=== PATIENT | female | born 1950 | race African-American/Black ===

== ENCOUNTER 2018-03-13 08:44 | Inpatient (IN) | payer MEDICARE, MEDICAID ==
[~2018-03-13] VITALS: Ht 157.5 cm; Wt 108.9 kg
[~2018-03-13 08:44] MED LIST: ATOR-2; BENA5TAB3; CARV3.1242; CITA10SO; CLOP75TA33; LEVO25TA2; N325; OMEP10CA4
[2018-03-13] MEDS ORDERED: ONDANSETRON HCL 4MG/2ML VIAL IV STA (09:06)
[2018-03-13] MEDS ORDERED: KETOROLAC 30MG/ML VIAL IV STA (09:06)
[2018-03-13] MEDS ORDERED: SODIUM CHLORIDE 0.9% 1,000 ML IV ONE (09:06)
[2018-03-13] MEDS ORDERED: MORPHINE SULFATE 4 MG/ML CPJ (NOT FOR IM USE) IV STA (09:06)
[2018-03-13 09:51] LABS: EOSINOPHILS % 2.5 % (0.0-5.0); HEMATOCRIT. 35.2 % (36.0-48.0); HEMOGLOBIN. 11.6 g/dL (12.0-16.0); LYMPHOCYTES % 11.4 % (20.0-50.0); MEAN CORPUSCULAR VOLUME 87.9 fL (81.0-99.0); MEAN PLATELET VOLUME 7.5 fl (7.4-10.4); MONOCYTES % 8.7 % (2.0-8.0); NEUTROPHILS % 76.4 % (40.0-76.0); PLATELET 270 x1000/uL (130-400); RED CELL DISTRIBUTION WIDTH 19.8 % (11.6-14.6)
[2018-03-13] MEDS ORDERED: KETAMINE HCL 50 MG/ML 10ML IV ONE (10:00)
[2018-03-13] MEDS ORDERED: MIDAZOLAM HCL 2 MG/2 ML VIAL IV ONE (10:00)
[2018-03-13] MEDS ORDERED: FENTANYL CITRATE/PF 50MCG/ML 2ML VIAL IV ONE (10:00)
[2018-03-13] MEDS ORDERED: PROPOFOL 200MG/20ML VIAL IV ONE (10:00)
[2018-03-13 10:07] LABS: INR 1.1; PARTIAL THROMBOPLASTIN TIME 29.2 sec (23.4-31.0); PROTHROMBIN TIME 11.5 sec (9.4-11.6)
[2018-03-13 10:31] LABS: CHLORIDE 105 mEq/L (98-107)
[2018-03-13] MEDS ORDERED: MORPHINE SULFATE 2 MG/ML CPJ (NOT FOR IM USE) IV PRN (14:00)
[2018-03-13] MEDS ORDERED: ONDANSETRON HCL 4MG/2ML VIAL IV PRN (14:00)
[2018-03-13 16:00] VITALS: BP 113/59
[2018-03-13] MEDS: MORPHINE SULFATE 4 MG/ML CPJ (NOT FOR IM USE) IV PRN ×2 (16:49→23:56)
[2018-03-13 20:00] VITALS: BP 104/55
[2018-03-13] MEDS: ATORVASTATIN CALCIUM 40MG TABLET PO SCH (20:05)
[2018-03-13] MEDS: HYDROCODONE/ACETAMINOPHEN 5/325MG TABLET PO PRN (20:08)
[2018-03-13] MEDS: CARVEDILOL 3.125 MG TABLET PO SCH (20:09)
[2018-03-13] MEDS ORDERED: TRAM50TA3 PO (20:38)
[2018-03-13] MEDS ORDERED: CARV25TA47 PO (20:38)
[2018-03-13] MEDS ORDERED: LISI-604 PO (20:38)
[2018-03-13] MEDS ORDERED: COR12 PO (20:38)
[2018-03-13] MEDS ORDERED: FURO40TA5 PO (20:38)
[2018-03-13] MEDS ORDERED: FOLI-43 PO (20:38)
[2018-03-13] MEDS ORDERED: SPIR25TA4 PO (20:38)
[2018-03-13] MEDS ORDERED: CLOT24CR TP (20:38)
[2018-03-13] MEDS ORDERED: LEVO112T7 PO (20:38)
[2018-03-13] MEDS ORDERED: FLUT9.9S BOTHNSTRLS (20:38)
[2018-03-13] MEDS ORDERED: ATOR40TA70 PO (20:38)
[2018-03-13] MEDS ORDERED: DULO60CA44 PO (20:38)
[2018-03-13] MEDS ORDERED: METH2.5T PO (20:38)
[2018-03-13] MEDS ORDERED: DICY20TA11 PO (20:38)
[2018-03-13] MEDS ORDERED: HYDR200T80 PO (20:38)
[2018-03-13] MEDS ORDERED: ASPI-1159 PO (20:38)
[2018-03-13] MEDS ORDERED: LORA10TA7 PO (20:38)
[2018-03-13] MEDS ORDERED: NITR0.4T49 SL (20:38)
[2018-03-13] MEDS ORDERED: OMEP20TA2 PO (20:38)
[2018-03-13] MEDS ORDERED: MAGN400T27 PO (20:38)
[2018-03-14] VITALS: BP 110/62
[2018-03-14] MEDS: HYDROCODONE/ACETAMINOPHEN 5/325MG TABLET PO PRN ×3 (02:30→23:44)
[2018-03-14 04:00] VITALS: BP 119/52
[2018-03-14] MEDS: MORPHINE SULFATE 4 MG/ML CPJ (NOT FOR IM USE) IV PRN ×3 (04:58→17:09)
[2018-03-14 07:05] LABS: BASOPHILS % 0.5 % (0.0-2.0); EOSINOPHILS % 3.7 % (0.0-5.0); HEMATOCRIT. 34.4 % (36.0-48.0); HEMOGLOBIN. 11.3 g/dL (12.0-16.0); LYMPHOCYTES % 13.2 % (20.0-50.0); MEAN CORPUSCULAR HEMOGLOBIN 29.3 pg (28.0-32.0); MEAN PLATELET VOLUME 7.8 fl (7.4-10.4); MONOCYTES % 12.1 % (2.0-8.0); NEUTROPHILS % 70.5 % (40.0-76.0); PLATELET 292 x1000/uL (130-400); RED BLOOD CELL COUNT 3.86 mill/uL (4.2-5.4); RED CELL DISTRIBUTION WIDTH 20.2 % (11.6-14.6)
[2018-03-14] MEDS: LEVOTHYROXINE SODIUM 25MCG TABLET PO SCH (07:07)
[2018-03-14 08:00] VITALS: BP 115/78
[2018-03-14] MEDS: CARVEDILOL 3.125 MG TABLET PO SCH ×2 (08:08→20:00)
[2018-03-14] MEDS: BENAZEPRIL 5MG TABLET PO SCH (08:11)
[2018-03-14] MEDS ORDERED: VANCOMYCIN HCL 500 MG/VIAL ONE (10:36)
[2018-03-14] MEDS ORDERED: BACITRACIN ZINC 15GM TUBE TOP ONE (10:36)
[2018-03-14 12:00] VITALS: BP 100/50
[2018-03-14 16:00] VITALS: BP 107/44
[2018-03-14 20:00] VITALS: BP 116/68
[2018-03-14] MEDS: ATORVASTATIN CALCIUM 40MG TABLET PO SCH (20:00)
[2018-03-15] VITALS: BP 112/64
[2018-03-15 04:00] VITALS: BP 124/69
[2018-03-15] MEDS: MORPHINE SULFATE 4 MG/ML CPJ (NOT FOR IM USE) IV PRN ×2 (05:50→09:56)
[2018-03-15] MEDS: LEVOTHYROXINE SODIUM 25MCG TABLET PO SCH (06:29)
[2018-03-15 08:00] VITALS: BP 114/57
[2018-03-15 08:06] LABS: BG BASE EXCESS -1.7 mmol/L (-2.0-2.0); BG CARBOXYHEMOGLOBIN 0.3 % (0.5-1.5); BG DEOXYHEMOGLOBIN 6.3 % (0.0-5.0); BG HCO3 ACT 22.9 mmol/L (22.0-26.0); BG METHEMOGLOBIN 0.2 % (0.0-1.5); BG OXYGEN SATURATION 93.7 % (92.0-98.5); BG OXYHEMOGLOBIN 93.2 % (94.0-97.0); BG PCO2 38.4 mmHg (35.0-45.0); BG PH 7.393 (7.350-7.450); BG PO2 72.3 mmHg (75.0-100.0); BG SAMPLE SITE RIGHT RADIAL; BG TOTAL HEMOGLOBIN 11.7 g/dL (12.0-18.0); BG VENT MODE ROOM AIR
[2018-03-15] MEDS: CARVEDILOL 3.125 MG TABLET PO SCH ×2 (09:00→21:20)
[2018-03-15] MEDS: BENAZEPRIL 5MG TABLET PO SCH (09:00)
[2018-03-15] MEDS: BLOOD SUGAR DIAGNOSTIC STRIP TEST SCH ×3 (11:39→21:19)
[2018-03-15] MEDS: HYDROCODONE/ACETAMINOPHEN 5/325MG TABLET PO PRN (11:43)
[2018-03-15] MEDS ORDERED: MORPHINE SULFATE 4 MG/ML CPJ (NOT FOR IM USE) IV PRN (11:45)
[2018-03-15] MEDS: DEXT 5%/0.45% NACL 1000ML 1,000 ML IV SCH ×2 (11:54→21:29)
[2018-03-15 12:00] VITALS: BP 127/70
[2018-03-15 13:23] LABS: INR 1.1; PROTHROMBIN TIME 11.9 sec (9.4-11.6)
[2018-03-15 16:00] VITALS: BP 113/61
[2018-03-15] MEDS: DIPHENHYDRAMINE 50MG/ML VIAL IV PRN (16:57)
[2018-03-15 20:00] VITALS: BP 132/67
[2018-03-15] MEDS: ATORVASTATIN CALCIUM 40MG TABLET PO SCH (21:19)
[2018-03-15] MEDS: HYDROMORPHONE HCL/PF 2MG/ML CPJ IV PRN (21:21)
[2018-03-16] VITALS: BP 141/65
[2018-03-16 04:00] VITALS: BP 128/73
[2018-03-16] MEDS: HYDROMORPHONE HCL/PF 2MG/ML CPJ IV PRN ×2 (04:08→08:10)
[2018-03-16] MEDS: LEVOTHYROXINE SODIUM 25MCG TABLET PO SCH (07:57)
[2018-03-16] MEDS: DEXT 5%/0.45% NACL 1000ML 1,000 ML IV SCH ×2 (07:57→17:30)
[2018-03-16] MEDS: BLOOD SUGAR DIAGNOSTIC STRIP TEST SCH ×2 (07:57→21:00)
[2018-03-16 08:00] VITALS: BP 124/61
[2018-03-16] MEDS: CARVEDILOL 3.125 MG TABLET PO SCH ×2 (08:09→22:45)
[2018-03-16] MEDS: BENAZEPRIL 5MG TABLET PO SCH (08:10)
[2018-03-16] MEDS: DIPHENHYDRAMINE 50MG/ML VIAL IV PRN (10:13)
[2018-03-16 12:00] VITALS: BP 119/60
[2018-03-16] MEDS ORDERED: VANCOMYCIN HCL 500 MG/VIAL ONE ×2 (15:27→20:25)
[2018-03-16] MEDS ORDERED: BACITRACIN ZINC 15GM TUBE TOP ONE (15:27)
[2018-03-16 16:00] VITALS: BP 123/65
[2018-03-16] MEDS ORDERED: FENTANYL CITRATE/PF 50MCG/ML 2ML VIAL ONE (19:48)
[2018-03-16] MEDS ORDERED: PROPOFOL 200MG/20ML VIAL IV ONE (19:49)
[2018-03-16] MEDS ORDERED: MIDAZOLAM HCL 2 MG/2 ML VIAL ONE (19:49)
[2018-03-16] MEDS ORDERED: ONDANSETRON HCL 4MG/2ML VIAL ONE (20:06)
[2018-03-16] MEDS ORDERED: HYDROMORPHONE HCL/PF 2MG/ML (OR) ONE (20:06)
[2018-03-16] MEDS ORDERED: DEXAMETHASONE 4MG/ML 1ML VIAL ONE (20:06)
[2018-03-16] MEDS ORDERED: LABETALOL 5MG/ML SYR 20 MG/4 ML SYRINGE IV PRN (20:30)
[2018-03-16] MEDS ORDERED: MEPERIDINE HCL/PF 25MG/ML CPJ IV PRN (20:30)
[2018-03-16] MEDS ORDERED: ONDANSETRON HCL 4MG/2ML VIAL IV PRN (20:30)
[2018-03-16] MEDS ORDERED: HYDROMORPHONE HCL/PF 2MG/ML CPJ IV PRN (20:30)
[2018-03-16] MEDS: CEFAZOLIN 1000MG PREMIX 50 ML IV SCH (22:45)
[2018-03-16] MEDS: ATORVASTATIN CALCIUM 40MG TABLET PO SCH (22:45)
[2018-03-17] VITALS: BP 130/67
[2018-03-17] MEDS: HYDROMORPHONE HCL/PF 2MG/ML CPJ IV PRN ×2 (01:46→08:56)
[2018-03-17 04:00] VITALS: BP 112/58
[2018-03-17] MEDS: LEVOTHYROXINE SODIUM 25MCG TABLET PO SCH (06:26)
[2018-03-17] MEDS: CEFAZOLIN 1000MG PREMIX 50 ML IV SCH (06:26)
[2018-03-17] MEDS: BLOOD SUGAR DIAGNOSTIC STRIP TEST SCH ×3 (06:54→17:20)
[2018-03-17 08:00] VITALS: BP 124/67
[2018-03-17 08:03] LABS: HEMATOCRIT. 31.4 % (36.0-48.0); HEMOGLOBIN. 10.3 g/dL (12.0-16.0); MEAN CORPUSCULAR HEMOGLOBIN 28.6 pg (28.0-32.0); MEAN CORPUSCULAR VOLUME 87.4 fL (81.0-99.0); MEAN PLATELET VOLUME 7.9 fl (7.4-10.4); PLATELET 256 x1000/uL (130-400); RED BLOOD CELL COUNT 3.59 mill/uL (4.2-5.4); RED CELL DISTRIBUTION WIDTH 19.3 % (11.6-14.6)
[2018-03-17 08:17] LABS: CHLORIDE 103 mEq/L (98-107)
[2018-03-17 08:26] LABS: LDL CHOLESTEROL 38 mg/dL (5-100)
[2018-03-17 08:29] LABS: HDL CHOLESTEROL 42 mg/dL (40-59)
[2018-03-17] MEDS: BENAZEPRIL 5MG TABLET PO SCH (08:56)
[2018-03-17] MEDS: CARVEDILOL 3.125 MG TABLET PO SCH (08:56)
[2018-03-17 12:00] VITALS: BP 105/57
[2018-03-17 12:09] LABS: BG BASE EXCESS -0.1 mmol/L (-2.0-2.0); BG CARBOXYHEMOGLOBIN 0.8 % (0.5-1.5); BG DEOXYHEMOGLOBIN 2.8 % (0.0-5.0); BG FRACTION INSPIRED OXYGEN 28; BG METHEMOGLOBIN 0.3 % (0.0-1.5); BG OXYGEN SATURATION 97.2 % (92.0-98.5); BG OXYHEMOGLOBIN 96.1 % (94.0-97.0); BG PCO2 37.7 mmHg (35.0-45.0); BG PH 7.422 (7.350-7.450); BG PO2 95.1 mmHg (75.0-100.0); BG SAMPLE SITE RIGHT RADIAL; BG TOTAL HEMOGLOBIN 14.2 g/dL (12.0-18.0); BG VENT MODE NASAL CANNULA
[2018-03-17] MEDS: HYDROCODONE/ACETAMINOPHEN 5/325MG TABLET PO PRN (14:43)
[2018-03-17 16:00] VITALS: BP 110/80
[2018-03-17 17:28] LABS: PLATELET ESTIMATE NORMAL
[2018-03-17 18:10] VITALS: BP 110/80
== END 2018-03-17 20:40 | DRG 493 ==
LOC: ER 08:44 → 6EST 13:02 → EDBEDREQ 13:05 → ENRESERV 14:45 → 6EST 03-14 16:22
PROVIDERS: ADMIT Internal Medicine; ATTEND Internal Medicine
PROC: 0QSK04Z Reposition Left Fibula with Internal Fixation Device, Open Approach (ICD-10-PCS; 2018-03-16)
PROC: 0QSH04Z Reposition Left Tibia with Internal Fixation Device, Open Approach (ICD-10-PCS; principal; 2018-03-16 16:30)
DX: S82.842A Displaced bimalleolar fracture of left lower leg, initial encounter for closed fracture (principal); E44.0 Moderate protein-calorie malnutrition; M32.9 Systemic lupus erythematosus, unspecified; I11.0 Hypertensive heart disease with heart failure; I50.32 Chronic diastolic (congestive) heart failure; Z68.41 Body mass index [BMI] 40.0-44.9, adult; S82.832A Other fracture of upper and lower end of left fibula, initial encounter for closed fracture; S82.52XA Displaced fracture of medial malleolus of left tibia, initial encounter for closed fracture; W01.0XXA Fall on same level from slipping, tripping and stumbling without subsequent striking against object, initial encounter; E03.9 Hypothyroidism, unspecified; E78.5 Hyperlipidemia, unspecified; I25.10 Atherosclerotic heart disease of native coronary artery without angina pectoris; M19.90 Unspecified osteoarthritis, unspecified site; F41.9 Anxiety disorder, unspecified; K21.9 Gastro-esophageal reflux disease without esophagitis; M79.7 Fibromyalgia; E66.9 Obesity, unspecified; Z86.73 Personal history of transient ischemic attack (TIA), and cerebral infarction without residual deficits; I25.2 Old myocardial infarction; Z88.5 Allergy status to narcotic agent; Z79.82 Long term (current) use of aspirin; Z79.899 Other long term (current) drug therapy; Z90.49 Acquired absence of other specified parts of digestive tract; Z90.79 Acquired absence of other genital organ(s); Y93.89 Activity, other specified; Y92.89 Other specified places as the place of occurrence of the external cause; Y99.8 Other external cause status
CPT/HCPCS: 27788; 36415; 36600; 71045; 73600; 73610; 76000; 80048; 80053; 80061; 82375; 82805; 82962; 83690; 84484; 85025; 85384; 85610; 85730; 92523; 93005; 93306; 96361; 96374; 96375; 97162; 97164; 97530; 99285; J0690; J1100; J1170; J1200; J1885; J2250; J2270; J2405; J2704; J3010; J3370; J3490; J7030; A4315

== ENCOUNTER 2019-12-13 18:05 | Emergency (ER) | payer MEDICARE, MEDICAID ==
[~2019-12-13] VITALS: Ht 165.1 cm; Wt 105.0 kg
[~2019-12-13 18:05] MED LIST changes: +ASPI-1497 PO; -BENA5TAB3; +BENA5TAB6; -CITA10SO; +CLOT24CR TP; +DICY20TA11 PO; +DULO60CA44 PO; +FLUT9.9S BOTHNSTRLS; +FOLI-43 PO; +FURO40TA5 PO; +HYDR200T80 PO; +LEVO112T7 PO; -LEVO25TA2; +LORA10TA7 PO; +MAGN400T8 PO; +METH2.5T PO; -N325; +NITR0.4T49 SL; -OMEP10CA4; +OMEP20TA2 PO; +SPIR25TA6 PO; +TRAM50TA3 PO
[2019-12-14] MEDS ORDERED: KETOROLAC 15MG/ML VIAL IM ONE (00:15)
[2019-12-14 01:19] VITALS: BP 134/71
== END 2019-12-14 01:21 | disposition home or self-care (01) ==
LOC: ER 18:05
DX: M62.838 Other muscle spasm (principal); F41.9 Anxiety disorder, unspecified; K21.9 Gastro-esophageal reflux disease without esophagitis; I11.9 Hypertensive heart disease without heart failure; E03.9 Hypothyroidism, unspecified; M19.90 Unspecified osteoarthritis, unspecified site; Z88.6 Allergy status to analgesic agent; Z79.82 Long term (current) use of aspirin
CPT/HCPCS: 96372; 99283; J1885

== ENCOUNTER 2019-12-15 09:35 | Emergency (ER) | payer MEDICARE, MEDICAID ==
[~2019-12-15] VITALS: Ht 165.1 cm; Wt 69.0 kg
[2019-12-15 09:43] VITALS: BP 170/65
[2019-12-15] MEDS ORDERED: ONDANSETRON 4MG ODT PO ONE (12:00)
[2019-12-15] MEDS ORDERED: FAMOTIDINE 20MG TABLET PO ONE (12:00)
[2019-12-15] MEDS ORDERED: MAGNESIUM/ALUMINUM HYDROXIDE/SIMETHICONE 30ML UDC PO ONE (12:00)
[2019-12-15] MEDS ORDERED: ACETAMINOPHEN 325MG TABLET PO ONE (12:00)
== END 2019-12-15 12:42 | disposition left against medical advice (07) ==
LOC: ER 09:50
DX: R11.2 Nausea with vomiting, unspecified (principal); F41.9 Anxiety disorder, unspecified; K21.9 Gastro-esophageal reflux disease without esophagitis; I10 Essential (primary) hypertension; E03.9 Hypothyroidism, unspecified; M79.7 Fibromyalgia; Z79.82 Long term (current) use of aspirin; Z79.899 Other long term (current) drug therapy; Z88.5 Allergy status to narcotic agent
CPT/HCPCS: 99283

== ENCOUNTER 2021-12-22 19:04 | Inpatient (IN) | payer MEDICARE, MEDICAID ==
[~2021-12-22] VITALS: Ht 162.6 cm; Wt 93.9 kg
[~2021-12-22 19:04] MED LIST changes: -ATOR-2; +ATOR-2 PO; -CARV3.1242; +CARV3.1242 PO; -CLOP75TA33; +CLOP75TA33 PO
[2021-12-22] MEDS ORDERED: ASPIRIN 325MG TABLET PO ONE (20:00)
[2021-12-22] MEDS ORDERED: CLOPIDOGREL 75MG TABLET PO ONE (20:00)
[2021-12-22 20:18] LABS: BASOPHILS % 0.9 % (0.0-2.0); EOSINOPHILS % 3.4 % (0.0-5.0); HEMATOCRIT. 38.4 % (36.0-48.0); HEMOGLOBIN. 12.9 g/dL (12.0-16.0); LYMPHOCYTES % 19.4 % (20.0-50.0); MEAN CORPUSCULAR HEMOGLOBIN 29.9 pg (28.0-32.0); MEAN CORPUSCULAR VOLUME 88.9 fL (81.0-99.0); MEAN PLATELET VOLUME 7.8 fl (7.4-10.4); MONOCYTES % 9.3 % (2.0-8.0); PLATELET 174 x1000/uL (130-400); RED BLOOD CELL COUNT 4.32 mill/uL (4.2-5.4); RED CELL DISTRIBUTION WIDTH 14.5 % (11.6-14.6)
[2021-12-22 20:23] LABS: CHLORIDE 110 mEq/L (98-107)
[2021-12-22 20:27] LABS: ETHANOL BLOOD < 10 mg/dL
[2021-12-22 20:33] LABS: CLARITY URINE CLEAR (CLEAR); COLOR URINE YELLOW (YELLOW); KETONES URINE NEGATIVE (NEGATIVE); LEUKOCYTE ESTERASE URINE TRACE (NEGATIVE); NITRITE URINE NEGATIVE (NEGATIVE); OCCULT BLOOD URINE NEGATIVE (NEGATIVE); PROTEIN URINE NEGATIVE (NEGATIVE); SPECIFIC GRAVITY URINE 1.031 (1.005-1.030); UROBILINOGEN URINE 0.2 E.U./dL (0.2-1.0)
[2021-12-22 20:49] LABS: *AMPHETAMINES SCREEN URINE NEGATIVE (NEGATIVE); *BARBITURATES SCREEN URINE NEGATIVE (NEGATIVE); *BENZODIAZEPINES SCREEN URINE NEGATIVE (NEGATIVE); *COCAINE SCREEN URINE NEGATIVE (NEGATIVE)
[2021-12-22 20:50] LABS: CANNABINOID URINE SCREEN NEGATIVE (NEGATIVE); METHADONE URINE SCREEN NEGATIVE (NEGATIVE); OPIATES URINE SCREEN NEGATIVE (NEGATIVE); PHENCYCLIDINE URINE SCREEN NEGATIVE (NEGATIVE)
[2021-12-22] MEDS ORDERED: IOHEXOL-350 100 ML BOTTLE ONE (20:50)
[2021-12-22] MEDS ORDERED: ATORVASTATIN CALCIUM 40MG TABLET PO SCH (21:00)
[2021-12-23] MEDS ORDERED: DIPHENHYDRAMINE 25MG CAPSULE PO ONE (00:15)
[2021-12-23] MEDS ORDERED: CEFTRIAXONE 1 G PREMIX 50 ML IV ONE (02:15)
[2021-12-23] MEDS ORDERED: CEFTRIAXONE 1,000 MG in DEXTROSE 5% WATER 50 ML IV SCH (03:15)
[2021-12-23] MEDS ORDERED: ONDANSETRON HCL 4MG/2ML INJ IV PRN (09:15)
[2021-12-23] MEDS ORDERED: MAGNESIUM/ALUMINUM HYDROXIDE/SIMETHICONE 30ML UDC PO PRN (09:15)
[2021-12-23] MEDS ORDERED: CLONIDINE 0.1MG TABLET PO PRN (09:15)
[2021-12-23] MEDS ORDERED: ACETAMINOPHEN 325MG TABLET PO PRN (09:15)
[2021-12-23] MEDS ORDERED: DOCUSATE SODIUM 100MG CAPSULE PO PRN (09:15)
[2021-12-23] MEDS ORDERED: ENOXAPARIN 40MG/0.4ML SYR SUBCUT SCH (09:15)
[2021-12-23] MEDS: OMEPRAZOLE 20MG CAPSULE EXTENDED RELEASE PO SCH (10:58)
[2021-12-23] MEDS: ENOXAPARIN 30MG/0.3ML SYR SUBCUT SCH ×2 (10:58→22:58)
[2021-12-23 12:05] VITALS: BP 118/55
[2021-12-23] MEDS ORDERED: QUET100T34 MT (12:45)
[2021-12-23] MEDS ORDERED: LISI10TA26 MT (12:50)
[2021-12-23] MEDS ORDERED: BENZ0.5T43 PO (12:50)
[2021-12-23] MEDS ORDERED: MECL-115 PO (12:50)
[2021-12-23] MEDS ORDERED: DOCU-150 MT (12:50)
[2021-12-23] MEDS ORDERED: BENZ0.5T43 MT (12:50)
[2021-12-23] MEDS ORDERED: LIDO28.35 TP (12:50)
[2021-12-23] MEDS ORDERED: LOPE2CAP PO (12:59)
[2021-12-23] MEDS ORDERED: DICL100G31 TP (12:59)
[2021-12-23] MEDS ORDERED: FAMO40TA7 MT (12:59)
[2021-12-23] MEDS ORDERED: HYDR453.3 TP (12:59)
[2021-12-23 13:13] LABS: BASOPHILS % 0.7 % (0.0-2.0); EOSINOPHILS % 4.3 % (0.0-5.0); HEMATOCRIT. 40.3 % (36.0-48.0); LYMPHOCYTES % 20.2 % (20.0-50.0); MEAN CORPUSCULAR VOLUME 89.1 fL (81.0-99.0); MEAN PLATELET VOLUME 7.9 fl (7.4-10.4); NEUTROPHILS % 65.8 % (40.0-76.0); PLATELET 205 x1000/uL (130-400); RED BLOOD CELL COUNT 4.52 mill/uL (4.2-5.4); RED CELL DISTRIBUTION WIDTH 14.7 % (11.6-14.6)
[2021-12-23 13:35] LABS: CHLORIDE 109 mEq/L (98-107)
[2021-12-23 16:00] VITALS: BP 113/43
[2021-12-23 20:00] VITALS: BP 117/46
[2021-12-24] VITALS: BP 119/53
[2021-12-24 04:00] VITALS: BP 106/45
[2021-12-24 06:31] LABS: CHLORIDE 110 mEq/L (98-107)
[2021-12-24 06:34] LABS: BASOPHILS % 0.7 % (0.0-2.0); EOSINOPHILS % 6.4 % (0.0-5.0); HEMATOCRIT. 37.7 % (36.0-48.0); HEMOGLOBIN. 12.7 g/dL (12.0-16.0); LYMPHOCYTES % 23.9 % (20.0-50.0); MEAN CORPUSCULAR VOLUME 89.2 fL (81.0-99.0); MEAN PLATELET VOLUME 8.3 fl (7.4-10.4); MONOCYTES % 10.5 % (2.0-8.0); NEUTROPHILS % 58.5 % (40.0-76.0); PLATELET 190 x1000/uL (130-400); RED BLOOD CELL COUNT 4.23 mill/uL (4.2-5.4); RED CELL DISTRIBUTION WIDTH 15.1 % (11.6-14.6)
[2021-12-24 06:42] LABS: PHOSPHORUS 2.3 mg/dL (2.5-4.9)
[2021-12-24 06:43] LABS: LDL CHOLESTEROL 42 mg/dL (5-100)
[2021-12-24 06:44] LABS: HDL CHOLESTEROL 53 mg/dL (40-59)
[2021-12-24 06:45] LABS: T4 FREE 1.08 ng/dL (0.76-1.46)
[2021-12-24 07:40] VITALS: BP 105/55
[2021-12-24] MEDS: OMEPRAZOLE 20MG CAPSULE EXTENDED RELEASE PO SCH (09:50)
[2021-12-24] MEDS: ENOXAPARIN 30MG/0.3ML SYR SUBCUT SCH ×2 (09:51→21:17)
[2021-12-24 11:55] VITALS: BP 122/53
[2021-12-24 16:10] VITALS: BP 118/53
[2021-12-24] MEDS ORDERED: SODIUM PHOS,M-BASIC-D-BASIC 15 MM in DEXT 5% WATER 245 ML IV NR (18:00)
[2021-12-24] MEDS: SODIUM CHLORIDE 0.9% 1,000 ML IV SCH (19:18)
[2021-12-24 20:00] VITALS: BP 109/53
[2021-12-25 00:19] VITALS: BP 117/49
[2021-12-25 04:00] VITALS: BP 116/52
[2021-12-25] MEDS: SODIUM CHLORIDE 0.9% 1,000 ML IV SCH ×2 (05:01→18:25)
[2021-12-25 07:22] LABS: BASOPHILS % 0.5 % (0.0-2.0); EOSINOPHILS % 5.2 % (0.0-5.0); HEMATOCRIT. 35.9 % (36.0-48.0); HEMOGLOBIN. 12.3 g/dL (12.0-16.0); LYMPHOCYTES % 25.9 % (20.0-50.0); MEAN CORPUSCULAR HEMOGLOBIN 30.3 pg (28.0-32.0); MEAN CORPUSCULAR VOLUME 88.4 fL (81.0-99.0); MEAN PLATELET VOLUME 8.3 fl (7.4-10.4); NEUTROPHILS % 57.4 % (40.0-76.0); PLATELET 166 x1000/uL (130-400); RED BLOOD CELL COUNT 4.07 mill/uL (4.2-5.4); RED CELL DISTRIBUTION WIDTH 14.5 % (11.6-14.6)
[2021-12-25 08:00] VITALS: BP 138/73
[2021-12-25] MEDS: OMEPRAZOLE 20MG CAPSULE EXTENDED RELEASE PO SCH (10:01)
[2021-12-25] MEDS: ENOXAPARIN 30MG/0.3ML SYR SUBCUT SCH ×2 (10:01→20:51)
[2021-12-25 12:00] VITALS: BP 130/69
[2021-12-25 16:00] VITALS: BP 115/54
[2021-12-25 20:00] VITALS: BP 117/47
[2021-12-25] MEDS: CARVEDILOL 3.125 MG TABLET PO SCH (20:51)
[2021-12-25] MEDS ORDERED: ATORVASTATIN CALCIUM 40MG TABLET PO SCH (21:00)
[2021-12-26] VITALS: BP 121/52
[2021-12-26] MEDS: PIPERACILLIN/TAZOBACTAM 3.375 G in DEXTROSE 5% WATER 50 ML IV SCH ×3 (00:42→14:00)
[2021-12-26 01:10] LABS: BASOPHILS % 0.4 % (0.0-2.0); EOSINOPHILS % 3.7 % (0.0-5.0); HEMATOCRIT. 37.9 % (36.0-48.0); HEMOGLOBIN. 12.5 g/dL (12.0-16.0); LYMPHOCYTES % 24.2 % (20.0-50.0); MEAN CORPUSCULAR HEMOGLOBIN 29.5 pg (28.0-32.0); MEAN CORPUSCULAR VOLUME 89.4 fL (81.0-99.0); MEAN PLATELET VOLUME 8.2 fl (7.4-10.4); MONOCYTES % 8.6 % (2.0-8.0); NEUTROPHILS % 63.1 % (40.0-76.0); PLATELET 164 x1000/uL (130-400); RED BLOOD CELL COUNT 4.24 mill/uL (4.2-5.4); RED CELL DISTRIBUTION WIDTH 14.6 % (11.6-14.6)
[2021-12-26 04:00] VITALS: BP 95/48
[2021-12-26] MEDS: SODIUM CHLORIDE 0.9% 1,000 ML IV SCH (06:37)
[2021-12-26] MEDS ORDERED: LEVOTHYROXINE SODIUM 112MCG TABLET PO SCH (07:20)
[2021-12-26] MEDS ORDERED: FAMOTIDINE 20MG TABLET PO SCH (07:20)
[2021-12-26 08:00] VITALS: BP 116/49
[2021-12-26] MEDS ORDERED: DULOXETINE HCL 60MG DR CAPSULE PO SCH (09:00)
[2021-12-26] MEDS ORDERED: CLOPIDOGREL 75MG TABLET PO SCH (09:00)
[2021-12-26] MEDS: CARVEDILOL 3.125 MG TABLET PO SCH (09:00)
[2021-12-26] MEDS ORDERED: FOLIC ACID 1MG TABLET PO SCH (09:00)
[2021-12-26] MEDS ORDERED: FUROSEMIDE 40MG TABLET PO SCH (09:00)
[2021-12-26] MEDS ORDERED: LORATADINE 10MG TABLET PO SCH (09:00)
[2021-12-26] MEDS ORDERED: ASPIRIN 81MG TABLET PO SCH (09:00)
[2021-12-26] MEDS ORDERED: HYDROXYCHLOROQUINE SULFATE 200MG TABLET PO SCH (09:00)
[2021-12-26] MEDS: ENOXAPARIN 30MG/0.3ML SYR SUBCUT SCH (09:37)
[2021-12-26 12:00] VITALS: BP 123/46
[2021-12-26 15:54] VITALS: BP 111/49
[2021-12-26 16:00] VITALS: BP 111/49
== END 2021-12-26 17:47 | disposition home health service (06) | DRG 65 ==
LOC: ER 19:04 → EDBEDREQTM 21:00 → EDBEDREQSVC 21:00 → UNDOADMIN 12-23 00:17 → MICUSO 12-23 00:17 → 6WST 12-23 11:36
PROVIDERS: ADMIT Internal Medicine; ATTEND Internal Medicine
DX: I63.9 Cerebral infarction, unspecified (principal); N17.9 Acute kidney failure, unspecified; E44.0 Moderate protein-calorie malnutrition; J98.11 Atelectasis; E16.2 Hypoglycemia, unspecified; E03.9 Hypothyroidism, unspecified; E78.5 Hyperlipidemia, unspecified; M32.9 Systemic lupus erythematosus, unspecified; I67.82 Cerebral ischemia; M19.90 Unspecified osteoarthritis, unspecified site; E83.39 Other disorders of phosphorus metabolism; F41.9 Anxiety disorder, unspecified; J44.9 Chronic obstructive pulmonary disease, unspecified; R47.1 Dysarthria and anarthria; Z20.822 Contact with and (suspected) exposure to COVID-19; K21.9 Gastro-esophageal reflux disease without esophagitis; E87.5 Hyperkalemia; I10 Essential (primary) hypertension; K58.9 Irritable bowel syndrome, unspecified; Z88.5 Allergy status to narcotic agent; Z79.82 Long term (current) use of aspirin; Z79.899 Other long term (current) drug therapy; Z68.35 Body mass index [BMI] 35.0-35.9, adult
CPT/HCPCS: 36415; 70496; 70498; 70551; 71045; 80048; 80053; 80061; 80076; 80305; 80320; 81003; 82962; 83735; 84100; 84439; 84443; 84484; 85025; 87426; 93005; 93970; 97162; 97166; 99285; C1893; J0696; J1650; J2543; J3490; J7030; J7060; Q0163; Q9967; G0480